=== PATIENT | male | born 1970 | race Caucasian/White ===

== ENCOUNTER 2025-09-17 08:44 | Emergency (ER) | payer BC, SELFPAY ==
[2025-09-17 08:45] VITALS: BP 165/90
--- NOTE | 2025-09-17 08:59 | ED.GENMED ---
History of Present Illness
General
Chief Complaint: Cardiac Symptoms
Source: patient
Exam Limitations: none
Time Seen by Provider: 09/17/25 08:58
History of Present Illness
History of Present Illness:
55-year-old male with history of hypercholesterolemia and a family history of cardiac disease presents with intermittent symptoms of chest discomfort radiating to the right arm the neck and the scapula. This has been going on for several days. He
notes shortness of breath and fatigue. He does not smoke. He denies any pleuritic discomfort. No recent travel or surgery. He denies any diaphoresis or nausea. No other complaints at this time
Phy Exam
Physical Exam
Physical Exam:
General: Well-appearing male no acute respiratory distress HEENT: Normal cephalic atraumatic
Heart: Regular rate and rhythm
Lungs: Clear no wheeze
Abdomen is soft nontender nondistended
Extremities: No cyanosis or edema
Skin is warm no rash
Vascular: 2+ radial pulse bilateral wrist
Course
Orders/Labs/Results
Orders:
Orders
09/17/25 08:48
Electrocardiogram (*1) Urgent
Reason for Study: Chest Pain
EKG- Treatment ONCE
09/17/25 09:12
CT Chest Angio W/wo Iv Contras Urgent
Comment:
Reason For Exam: chest and scapular pain
09/17/25 09:36
Complete Blood Count/With Diff Urgent
Comprehensive Metabolic Panel Urgent
Lipase Urgent
Troponin I Urgent
Abnormal Lab Results
09/17/25
09:36
MCHC 32.9 L g/dL
(33.0-37.0)
Glucose 151 H mg/dl
(70-99)
09/17/25 09:36
09/17/25 09:36
Vital Signs
Initial and Last Documented VS:
Initial Vital Signs
Temp Pulse Resp BP Pulse Ox
98.2 F 67 16 165/90 97
09/17/25 08:45 09/17/25 08:45 09/17/25 08:45 09/17/25 08:45 09/17/25 08:45
Last Documented Vital Signs
Temp Pulse Resp BP Pulse Ox
98.2 F 76 14 126/77 96
09/17/25 08:45 09/17/25 10:45 09/17/25 10:30 09/17/25 10:00 09/17/25 10:45
MDM/Problems Addressed
Differential Diagnosis Includes:
Chest pain with radiation to the scapular neck and arm. Consider ACS versus dissection versus PE versus musculoskeletal discomfort.
EKG was reviewed and demonstrates sinus rhythm with a rate of 84 no ischemic changes. Troponin pending. Given radiation to scapula and neck we will order CT angio of the chest
*Pulse Oximetry
SaO2: 97
Oxygen Mode of Delivery: Room air
Patient hypoxic: no
*Critical Care Note
Total Time (30-74mins, 75-104mins- exclusive of procedures): Not Applicable
Update Note
Update Note:
EKG shows sinus rhythm with a rate of 84 no ischemic changes troponin undetectable and patient has had days worth of symptoms. No need for repeat troponin. CT angio of the chest negative for acute finding. Patient reassured. No signs of imminent
danger going on
Will provide follow-up with chest pain hotline
ED Attending Note
-
Portions of this chart may have been created with voice recognition software.� Occasional wrong word or��sound alike� substitutions may have occurred due to the inherent limitations of voice recognition software.
Discharge Plan
Departure
Patient Disposition: Home (Routine Discharge)
Date of Disposition: 09/17/25
Time of Disposition: 13:10
Patient with high blood pressure during this ER visit?: No
Discharge Problem:
Chest pain
Instructions: Chest Pain DCA Follow Up
Prescriptions:
No Action
latanoprost 0.005 % Drops
1 drp LEFT EYE HS
cetirizine [Zyrtec] 10 mg Tablet
10 mg PO DAILYPRN PRN (Reason: allergies)
atorvastatin [Lipitor] 10 mg Tablet
10 mg PO DAILY
prednisolone acetate 1 % Drops,Suspension
1 drp LEFT EYE DAILY
trazodone 100 mg Tablet
100 mg PO HSPRN PRN (Reason: sleep)
timolol 0.5 % Drops
1 drp LEFT EYE BID
dorzolamide 2 % Drops
1 drp LEFT EYE BID
ketorolac 0.5 % Drops
1 drp LEFT EYE BID
Referrals:
Jose Zapata DO [Family Provider, Family Practice]
Activity Restrictions/Additional Instructions:
Please return here for worsening symptoms. Follow up with cardiology otherwise.
Interventions
Interventions:
*Risk Screen - Suicide Last Done: 09/17/25 08:48
*Neglect/Abuse Screening Last Done: 09/17/25 08:48
ED- Pulmonary Assessment Last Done: 09/17/25 09:38
ED- Cardiac Assessment Last Done: 09/17/25 09:38
Discharge Date and Time
Print Language: YORUBA
[2025-09-17 09:02] VITALS: BP 147/86
[2025-09-17 09:45] LABS: Hematocrit 45.6 % (39.0-52.0); Hemoglobin 15.0 g/dL (13.0-18.0); Mean Corp Hgb Conc. 32.9 g/dL (33.0-37.0); Mean Corpuscular Volume 89.4 fL (80.0-94.0); Nucleated Red Blood Cells % 0 % (-); Platelet Count 225 10^3/uL (130-400); Red Cell Dist. Width 12.7 % (11.5-14.5)
[2025-09-17 10:00] VITALS: BP 126/77
[2025-09-17 10:01] LABS: ALT (SGPT) 19 U/L (0-50); AST (SGOT) 19 U/L (17-59); Albumin 3.9 g/dl (3.5-5.0); Alkaline Phosphatase 56 U/L (38-126); Blood Urea Nitrogen 14 mg/dl (9-20); Calcium 9.3 mg/dl (8.4-10.2); Carbon Dioxide 28 mmol/L (22-30); Chloride 106 mmol/L (98-107); Glucose 151 mg/dl (70-99); Lipase 51 U/L (23-300); Potassium 4.3 mmol/L (3.5-5.1); Sodium 136 mmol/L (135-145); Total Protein 6.7 g/dl (6.3-8.2); eGFR > 60.00
[2025-09-17 10:13] LABS: Troponin I < 0.012 ng/ml
== END 2025-09-17 13:41 | disposition home or self-care (01) ==
LOC: EMR 08:44
PROVIDERS: Physician Assistant; EMERGENCY PHYSICIAN Emergency Medicine; FAMILY PHYSICIAN Student in an Organized Health Care Education/Training Program
DX: R07.89 Other chest pain (principal); E78.00 Pure hypercholesterolemia, unspecified
CPT/HCPCS: 99284; 71275; 80053; 83690; 84484; 85025; 93005; Q9967